=== PATIENT | male | born 1995 | race Hispanic/Latino ===

== ENCOUNTER 2024-03-04 18:58 | Emergency (ER) | payer OTHER ==
[2024-03-04] MEDS ORDERED: IBUPROFEN 100 MG/5 ML UCUP ONE (19:23)
[2024-03-04] MEDS ORDERED: KETOROLAC 30 MG/ML INJ ONE (19:55)
--- NOTE | 2024-03-04 21:01 | RAD REPORT ---
EXAM DESCRIPTION: RAD - Knee Right 3 View - 03/04/2024 7:55 pm CLINICAL HISTORY: PAIN COMPARISON: No comparisons TECHNIQUE: Right knee, 3 views. FINDINGS: No fracture, dislocation or periosteal reaction.No joint effusion seen. No joint space marta rowing. Soft tissue swelling anterior and medial to the patella. Clinical concerns for internal derangement or occult bony injury could be further assessed with MR im aging. IMPRESSION: Soft tissue swelling as above. No acute osseus abnormality.
--- NOTE | 2024-03-04 21:23 | EDPHYS ---
Physician Documentation [facility] Name: Benoit Barnard Age: 28 yrs Sex: Male : 1995 Arrival Date: 03/04/2024 Time: 18:58 Bed 12 Private MD: ED Physician Izaiah Max HPI: 03/04 19:30 This 28 yrs old Male presents to ER via Wheelchair with complaints of Knee cp Injury - Swelling. 19:30 The patient presents with pain, that is acute. The complaints affect the right knee. cp Context: resulted from an unknown cause, uses wheelchair. Onset: The symptoms/episode began/occurred yesterday. 19:30 Associated signs and symptoms: Pertinent positives: warmth, erythema, Pertinent cp negatives calf tenderness, fever. Treatment prior to arrival includes: no previous treatment. Historical: - Allergies: 19:14 No Known Allergies; cm10 - PMHx: 19:14 Cerebral Palsy; Non-verbal; Seizures; cm10 - PSHx: 19:14 Baclofen pump; G-tube; cm10 - Immunization history:: Adult Immunizations up to date. - Infectious Disease History:: Denies. - Social history:: Smoking status: Patient denies any tobacco usage or history of. ROS: 19:35 MS/extremity: Positive for decreased range of motion, erythema, pain, warmth, of the cp right knee, 19:35 Constitutional: Negative for fever, cp 19:35 Respiratory: Negative for cough, wheezing, 19:35 Abdomen/GI: Negative for vomiting, diarrhea, constipation, 19:35 All other systems are negative, Exam: 19:40 Constitutional: The patient appears in no acute distress, alert, awake, non-toxic, cp frail, 19:40 Head/Face: Normocephalic, atraumatic. cp 19:40 Chest/axilla: Inspection: normal, 19:40 Cardiovascular: Rate: tachycardic, 19:40 Respiratory: the patient does not display signs of respiratory distress, Respirations: normal, no use of accessory muscles, no retractions, labored breathing, is not present, 19:40 Abdomen/GI: Inspection: abdomen appears normal, Palpation: abdomen is soft and non-tender, in all quadrants, 19:40 Musculoskeletal/extremity: Extremities: noted in the right knee: anterior knee swelling, mild erythema, tenderness to palpation and pain with extension of knee, Vital Signs: 19:13 BP 136 / 89; Pulse 105; Resp 19; Temp 97.9(TE); Pulse Ox 88% on R/A; Weight 37.19 kg cm10 (R); Height 5 ft. 0 in. (R); 22:00 BP 111 / 67; Pulse 99; Resp 20; Temp 97.1(TE); Pulse Ox 96% on R/A; tl4 19:13 Body Mass Index 16.01 (37.19 kg, 152.4 cm) cm10 MDM: 19:16 Patient medically screened. cp 20:05 Differential diagnosis: closed fracture, contusion, septic joint, cellulitis, cp cellulitis. 21:21 Data reviewed: vital signs, nurses notes, radiologic studies, plain films. cp 21:21 I considered the following discharge prescriptions or medication management in the emergency department Medications were administered in the Emergency Department. See MAR. Counseling: I had a detailed discussion with the patient and/or guardian regarding the historical points, exam findings, and any diagnostic results supporting the discharge/admit diagnosis. Response to treatment: the patient's symptoms have markedly improved after treatment, and as a result, I will discharge patient. 03/04 19:21 Order name: XRAY Knee RIGHT 3 view; Complete Time: 21:06 03/04 21:06 Interpretation: Report reviewed. Administered Medications: 19:42 CANCELLED (Unable to give medication through J tube due to not having any extension tl4 sets available. Provider aware, mother aware, is OK with IM medication): ibuprofensuspension 10 mg/kg PO once 20:02 Drug: Ketorolac IM 15 mg IM once Route: IM; Site: right deltoid; tl4 20:39 Follow up: Response: No adverse reaction; Pain is decreased tl4 21:55 Drug: Rocephin (cefTRIAXone) IM 50 mg/kg IM once; not to exceed 2 grams Route: IM; tl4 Site: right vastus lateralis; 22:19 Follow up: Response: No adverse reaction tl4 21:57 Drug: Trimethoprim-Sulfamethoxazole PO (160 mg-800 mg (DS) 1 tablet PO once; crush and tl4 place in gastric tube Route: G-Tube; 22:18 Follow up: Response: No adverse reaction tl4 Disposition Summary: 03/04/24 21:22 Discharge Ordered Notes: Location: Home cp Problem: new cp Symptoms: have improved cp Condition: Stable cp Diagnosis - Cellulitis of right lower limb - right knee cp Followup: cp - With: Private Physician - When: 2 - 3 days - Reason: Recheck today's complaints Discharge Instructions: - Discharge Summary Sheet cp - Cellulitis, Adult cp Forms: - Medication Reconciliation Form cp - Antibiotic Education cp - Prescription Opioid Use cp - Patient Portal Instructions cp - Leadership Thank You Letter cp Prescriptions: - sulfamethoxazole-trimethoprim 200-40 mg/5 mL Oral Suspension - take 18 milliliters ORAL route every 12 hours for 10 days; 360 milliliter; cp Refills: 0, Product Selection Permitted Addendum: 03/06/2024 03:43 Co-signature as Attending Physician, Izaiah Max MD I agree with the assessment s p4 and plan of care. I reviewed the patient's care provided by the Advanced Practice Provider and agree with the diagnosis and treatment plan. Signatures: Dispatcher [employer] EDWI Adalid Patten PA PA cp Potepalov, Sergey, MD MD sp4 Rupa Stanley RN RN cm10 Ric Pedersen RN RN tl4 Corrections: (The following items were deleted from the chart) 03/04 19:42 19:21 Ibuprofen PO Suspension 10 mg/kg PO once ordered. cp tl4
--- NOTE | 2024-03-04 21:23 | ER ---
[facility]'s Notes [facility] Name: Benoit Barnard Age: 28 yrs Sex: Male : 1995 Arrival Date: 03/04/2024 Time: 18:58 Bed 12 Private MD: Diagnosis: Cellulitis of right lower limb-right knee Presentation: 03/04 19:13 Chief complaint: Parent and/or Guardian states: Right knee pain onset yesterday. Mom cm10 reports increased redness and swelling onset today. Coronavirus screen: Client denies travel out of the [place] in the last 14 days. At this time, the client does not indicate any symptoms associated with coronavirus-19. Ebola Screen: Patient denies travel to an Ebola-affected area in the 21 days before illness onset. No symptoms or risks identified at this time. Initial Sepsis Screen: Does the patient meet any 2 criteria? HR > 90 bpm. Does the patient have a suspected source of infection? No. Patient's initial sepsis screen is negative. Risk Assessment: Do you want to hurt yourself or someone else? Patient reports no desire to harm self or others. Onset of symptoms was March 04, 2024. 19:13 Method Of Arrival: Wheelchair cm10 19:13 Acuity: NANDO 4 cm10 Triage Assessment: 19:14 General: Appears in no apparent distress. comfortable, Behavior is calm. cm10 19:49 Injury Description: mother denies pt being injured. tl4 Historical: - Allergies: 19:14 No Known Allergies; cm10 - PMHx: 19:14 Cerebral Palsy; Non-verbal; Seizures; cm10 - PSHx: 19:14 Baclofen pump; G-tube; cm10 - Immunization history:: Adult Immunizations up to date. - Infectious Disease History:: Denies. - Social history:: Smoking status: Patient denies any tobacco usage or history of. Screenin:46 [facility] ED Fall Risk Assessment (Adult) History of falling in the last 3 months, tl4 including since admission No falls in past 3 months (0 pts) Confusion or Disorientation No (0 pts) Intoxicated or Sedated No (0 pts) Impaired Gait No (0 pts) Mobility Assist Device Used Yes (1 pt) Altered Elimination No (0 pt) Score/Fall Risk Level 0 - 2 = Low Risk Oriented to surroundings, Maintained a safe environment, Educated pt \T\ family on fall prevention, incl call for assistance when getting out of bed, Assessed \T\ reinforced patient's understanding of fall precautions. Abuse screen: Denies threats or abuse. Denies injuries from another. Nutritional screening: No deficits noted. Tuberculosis screening: No symptoms or risk factors identified. Assessment: 19:43 General: Appears in no apparent distress. Behavior is Pt has CPMR, pt is at his tl4 baseline per mother. Pain: Complains of pain in right knee. Neuro: Level of Consciousness is awake, alert, pt is at baseline LOC. Oriented to pt is at baseline orientation. Cardiovascular: Capillary refill < 3 seconds Patient's skin is warm and dry. Respiratory: Airway is patent Respiratory effort is even, unlabored, Respiratory pattern is regular, symmetrical, Breath sounds are clear bilaterally. GI: No signs and/or symptoms were reported involving the gastrointestinal system. : No signs and/or symptoms were reported regarding the genitourinary system. EENT: No signs and/or symptoms were reported regarding the EENT system. Derm: No signs and/or symptoms reported regarding the dermatologic system. Musculoskeletal: Swelling present in right knee right knee is warm to touch, pt indicates pain in right knee Parent/caregiver report the patient having pain in right knee. 20:39 Reassessment: Pt is resting comfortably in wheelchair. Mother denies any needs at this tl4 time. Will continue to monitor. 22:19 Reassessment: extended time to discharge due to IM medication administration. tl4 Vital Signs: 19:13 BP 136 / 89; Pulse 105; Resp 19; Temp 97.9(TE); Pulse Ox 88% on R/A; Weight 37.19 kg cm10 (R); Height 5 ft. 0 in. (R); 22:00 BP 111 / 67; Pulse 99; Resp 20; Temp 97.1(TE); Pulse Ox 96% on R/A; tl4 19:13 Body Mass Index 16.01 (37.19 kg, 152.4 cm) cm10 ED Course: 19:02 Patient arrived in ED. mg5 19:02 Adalid Patten PA is PHCP. cp 19:02 Roger Cavazos MD is Attending Physician. cp 19:14 Triage completed. cm10 19:14 Arm band placed on Patient placed in an exam room, on a stretcher. cm10 19:37 Ric Pedersen, RN is Primary Nurse. tl4 19:47 Patient has correct armband on for positive identification. Call light in reach. Adult tl4 w/ patient. Pt is secured in his personal wheelchair. Provided Education on: ed process, call herndon. Door closed. Noise minimized. Lights dimmed. Moved to private room. 19:48 No provider procedures requiring assistance completed. tl4 19:51 Patient did not have IV access during this emergency room visit. tl4 19:57 XRAY Knee RIGHT 3 view In Process Unspecified. EDMS 20:24 Izaiah Max MD is Attending Physician. cp Administered Medications: 19:42 CANCELLED (Unable to give medication through J tube due to not having any extension tl4 sets available. Provider aware, mother aware, is OK with IM medication): ibuprofensuspension 10 mg/kg PO once 20:02 Drug: Ketorolac IM 15 mg IM once Route: IM; Site: right deltoid; tl4 20:39 Follow up: Response: No adverse reaction; Pain is decreased tl4 21:55 Drug: Rocephin (cefTRIAXone) IM 50 mg/kg IM once; not to exceed 2 grams Route: IM; tl4 Site: right vastus lateralis; 22:19 Follow up: Response: No adverse reaction tl4 21:57 Drug: Trimethoprim-Sulfamethoxazole PO (160 mg-800 mg (DS) 1 tablet PO once; crush and tl4 place in gastric tube Route: G-Tube; 22:18 Follow up: Response: No adverse reaction tl4 Medication: 19:46 VIS not applicable for this client. tl4 Outcome: 21:22 Discharge ordered by . cp 22:05 Discharged to home via wheelchair, with family, tl4 22:05 Condition: stable 22:05 Discharge instructions given to family, Instructed on discharge instructions, follow up and referral plans. medication usage, Demonstrated understanding of instructions, follow-up care, medications, Prescriptions given X 1, 22:25 Patient left the ED. tl4 Signatures: Dispatcher [employer] EDMS Adalid Patten PA PA cp Martinez, Clarissa, VIVIAN RN cm10 Love Davidson mg5 Ric Pedersen, RN RN tl4
[2024-03-04] MEDS ORDERED: SMZ./TMP. 800/160 MG TABLET ONE (21:51)
[2024-03-04] MEDS ORDERED: CEFTRIAXONE 2000 MG/VIAL ONE (21:52)
[2024-03-04] MEDS ORDERED: LIDOCAINE 1% MPF 2 ML AMPULE ONE (21:52)
[2024-03-04] MEDS ORDERED: WATER FOR INJ,STERILE 10 ML ONE (21:52)
[2024-03-04 22:30] VITALS: BP 111/67; TEMP 97.1; O2SAT 96
== END 2024-03-04 22:25 | disposition home or self-care (01) ==
LOC: ER 18:58
DX: L03.115 Cellulitis of right lower limb (principal); G80.9 Cerebral palsy, unspecified
CPT/HCPCS: 73562; 96372; 99284; J0696

== ENCOUNTER 2024-06-21 14:19 | Emergency (ER) | payer OTHER ==
[2024-06-21] MEDS ORDERED: NA CHLORIDE 0.9% 1,000 ML ONE (15:21)
[2024-06-21 16:03] LABS: Absolute Eosinophils 0.3 K/uL (0-0.5); Absolute Lymphocytes (CBC) 0.7 K/uL (0.7-4.9); Absolute Monocytes 0.4 K/uL (0.1-1.3); Basophils % 0.6 % (0-1.3); Eosinophils % 8.6 % (0-4.4); Hematocrit 41.1 % (39.6-49.0); Hemoglobin 12.7 g/dL (13.6-17.9); Lymphocytes % 21.9 % (15.3-44.8); MCHC 30.9 g/dL (32.0-36.0); MCV 77.5 fL (80-100); Monocytes % 10.3 % (3.3-12.3); Neutrophils % 58.6 % (41.7-73.7); Nucleated Red Blood Cells % 0.4 % (0-0); Platelets 284 thou/uL (152-406); RBC Red Blood Cell Count 5.31 M/uL (4.33-5.43); Red Cell Distribution Width 19.6 % (12.1-15.2)
[2024-06-21 16:11] LABS: SARS-CoV-2 Antigen CONTROL BLUE LINE VIS/BG OK; SARS-CoV-2 Antigen Rapid Res Negative (Negative)
[2024-06-21 16:17] LABS: Anion Gap 6.1 mEq/L (5.0-15.0); Potassium 4.1 mEq/L (3.5-5.1)
--- NOTE | 2024-06-21 16:25 | RAD REPORT ---
Procedure: Chest Single View HISTORY: Seizure COMPARISON: 2022 FINDINGS: The lungs appear clear of acute infiltrate. No significant pleural effusion noted. The heart is normal size. IMPRESSION: No acute abnormality is displayed.
--- NOTE | 2024-06-21 17:41 | EDPHYS ---
Physician Documentation [facility] Name: Benoit Barnard Age: 28 yrs Sex: Male : 1995 Arrival Date: 06/21/2024 Time: 14:19 Bed 9 Private MD: ED Physician Freeman Dunlap HPI: 06/21 15:14 This 28 yrs old Male presents to ER via Wheelchair with complaints of Seizure. sb4 15:14 patient with history of cerebral palsy and epilepsy presents with multiple seizures sb4 over the past 24 hours. mom states that he typically only has seizures like this when he has some sort of infection. she denies any known fever, cough, aspiration episodes, vomiting, diarrhea. reports compliance with all medications. he is on zonisamide for his seizures, sees neurologist at [facility]. Historical: - Allergies: 15:04 No Known Allergies; hb - PMHx: 15:04 Cerebral Palsy; Non-verbal; Seizures; hb - PSHx: 15:04 Baclofen pump; G-tube; hb - Immunization history:: Adult Immunizations up to date. - Infectious Disease History:: Denies. - Social history:: Smoking status: Patient denies any tobacco usage or history of. ROS: 15:14 Unable to obtain ROS due to patient's inability to understand questions, , sb4 Exam: 15:14 Head/Face: Normocephalic, atraumatic. Eyes: Extra-ocular motions intact. Periorbital sb4 areas with no swelling, redness, or edema. ENT: Mucous membranes moist. Cardiovascular: Regular rate and rhythm with a normal S1 and S2. Respiratory: No increased work of breathing, no retractions or nasal flaring. Abdomen/GI: Soft, non-tender, no distension. 15:14 Constitutional: The patient appears in no acute distress, alert, awake, Vital Signs: 15:02 BP 120 / 82; Pulse 92; Resp 14; Temp 98.3; Pulse Ox 98% ; Weight 36.29 kg; hb 16:01 BP 127 / 79; Pulse 69; Resp 17; Pulse Ox 99% ; rs5 17:55 BP 119 / 74; Pulse 74; Resp 17; Pulse Ox 99% on R/A; rs5 MDM: 15:08 Medical Screening Exam initiated sb4 17:45 ED course: No seizures during ED stay. Patient is in no acute distress. Workup is sb4 unremarkable. I did recommend checking urine for infection but would require straight cath. Mom prefers to not at this time. Will bring patient back if seizures worsen or return. 17:45 Data reviewed: vital signs, nurses notes, lab test result(s), radiologic studies, and sb4 as a result, I will discharge patient. Care significantly affected by the following chronic conditions: Cerebral palsy, epilepsy. Counseling: I had a detailed discussion with the patient and/or guardian regarding the historical points, exam findings, and any diagnostic results supporting the discharge/admit diagnosis, lab results, radiology results, to return to the emergency department if symptoms worsen or persist or if there are any questions or concerns that arise at home. 06/21 15:13 Order name: CBC with Diff; Complete Time: 16:11 sb4 06/21 15:13 Order name: BMP; Complete Time: 16:18 sb4 06/21 15:13 Order name: SARS RAPID; Complete Time: 16:12 sb4 06/21 15:13 Order name: Flu; Complete Time: 16:12 sb4 06/21 15:13 Order name: RSV; Complete Time: 16:23 sb4 06/21 15:13 Order name: Chest Single View XRAY; Complete Time: 16:26 sb4 06/21 15:13 Order name: IV Start; Complete Time: 15:58 sb4 06/21 15:45 Order name: Labs - recollect needed: RSV; Complete Time: 15:58 bc6 06/21 16:10 Order name: EKG - Nurse/Tech; Complete Time: 16:10 sb4 EC:10 Rate is 83 beats/min. Rhythm is regular, Normal Sinus Rhythm. ND interval is normal at sb4 124 msec. QRS interval is normal at 84 msec. QT interval is normal at 362 msec. No Q waves. T waves are Normal. No ST changes noted. Clinical impression: No evidence of ischemia. Interpreted by me. Reviewed by me. Administered Medications: 15:30 Drug: NS 0.9% IV 1000 ml IV at 1000 ml once; to be given as a bolus over 60 minutes rs5 Route: IV; Rate: 1000 ml; Site: left antecubital; 16:41 Follow up: Response: No adverse reaction; IV Status: Completed infusion; IV Intake: rs5 999ml Disposition: 17:46 Chart complete. sb4 Disposition Summary: 06/21/24 17:40 Discharge Ordered Notes: Location: Home sb4 Problem: new sb4 Symptoms: have improved sb4 Condition: Stable sb4 Diagnosis - Other seizures sb4 Followup: sb4 - With: Emergency Department - When: As needed - Reason: Trouble breathing, Worsening of condition Discharge Instructions: - Discharge Summary Sheet sb4 - Epilepsy, [id number] sb4 Forms: - Patient Portal Instructions sb4 - Leadership Thank You Letter sb4 Signatures: Dispatcher [employer] EDMS Claudette Tong, RN RN Lisa Bettencourt PA-C PA-C sb4 Prudencio Clemons RN RN rs5 Naya Pickett6 Corrections: (The following items were deleted from the chart) 15:14 15:14 CBC+H.LAB.BRZ ordered. EDMS EDMS 15:14 15:14 BASIC METABOLIC PANEL+C.LAB.BRZ ordered. EDMS EDMS 15:14 15:14 Urinalysis W/Microscopic+U.LAB.BRZ ordered. EDMS EDMS 15:14 15:14 SARS-COV-2 Antigen Rapid+I.LAB.BRZ ordered. EDMS EDMS 15:14 15:14 Influenza Screen (A \T\ B)+BA.LAB.BRZ ordered. EDMS EDMS 15:14 15:14 Respiratory Syncytial Virus Ag+BA.LAB.BRZ ordered. EDMS EDMS 15:14 15:14 Chest Single View+RAD.RAD.BRZ ordered. EDMS EDMS
--- NOTE | 2024-06-21 17:41 | ER ---
Nurse's Notes [facility] Name: Benoit Barnard Age: 28 yrs Sex: Male : 1995 Arrival Date: 06/21/2024 Time: 14:19 Bed 9 Private MD: Diagnosis: Other seizures Presentation: 06/21 15:02 Chief complaint: Mother reports seizure x 5 today. Coronavirus screen: At this time, hb the client does not indicate any symptoms associated with coronavirus-19. Ebola Screen: No symptoms or risks identified at this time. Initial Sepsis Screen: Does the patient meet any 2 criteria? HR > 90 bpm. No. Patient's initial sepsis screen is negative. Does the patient have a suspected source of infection? No. Patient's initial sepsis screen is negative. Risk Assessment: Do you want to hurt yourself or someone else? Patient reports no desire to harm self or others. Onset of symptoms was June 21, 2024. 15:02 Method Of Arrival: Wheelchair hb 15:02 Acuity: NANDO 3 hb Historical: - Allergies: 15:04 No Known Allergies; hb - PMHx: 15:04 Cerebral Palsy; Non-verbal; Seizures; hb - PSHx: 15:04 Baclofen pump; G-tube; hb - Immunization history:: Adult Immunizations up to date. - Infectious Disease History:: Denies. - Social history:: Smoking status: Patient denies any tobacco usage or history of. Screenin:05 [facility] ED Fall Risk Assessment (Adult) History of falling in the last 3 months, rs5 including since admission No falls in past 3 months (0 pts) Confusion or Disorientation No (0 pts) Intoxicated or Sedated No (0 pts) Impaired Gait No (0 pts) Mobility Assist Device Used Altered Elimination No (0 pt) Score/Fall Risk Level 0 - 2 = Low Risk Oriented to surroundings, Maintained a safe environment. 15:05 Abuse screen: Denies threats or abuse. Nutritional screening: No deficits noted. rs5 Tuberculosis screening: No symptoms or risk factors identified. Assessment: 15:10 General: Appears in no apparent distress. comfortable, Behavior is calm, cooperative. rs5 Pain: Unable to use pain scale. pt is non-verbal. Neuro: Level of Consciousness is awake, alert, Oriented to unable to assess, pt is non-verba. Cardiovascular: Patient's skin is warm and dry. Respiratory: Airway is patent Respiratory effort is even, unlabored, Respiratory pattern is regular, symmetrical. GI: Abdomen is round non-distended, feeding tube noted to abdomen Abd is soft and non tender X 4 quads. : No signs and/or symptoms were reported regarding the genitourinary system. EENT: No signs and/or symptoms were reported regarding the EENT system. Derm: Skin is intact, Skin is pink, warm \T\ dry. Musculoskeletal: Range of motion: limited in all extremities. 16:22 Reassessment: Patient and/or family updated on plan of care and expected duration. Pain rs5 level reassessed. Patient is alert, oriented x 3, equal unlabored respirations, skin warm/dry/pink. 17:39 Reassessment: Patient and/or family updated on plan of care and expected duration. Pain rs5 level reassessed. Patient is alert, oriented x 3, equal unlabored respirations, skin warm/dry/pink. Vital Signs: 15:02 BP 120 / 82; Pulse 92; Resp 14; Temp 98.3; Pulse Ox 98% ; Weight 36.29 kg; hb 16:01 BP 127 / 79; Pulse 69; Resp 17; Pulse Ox 99% ; rs5 17:55 BP 119 / 74; Pulse 74; Resp 17; Pulse Ox 99% on R/A; rs5 ED Course: 14:22 Patient arrived in ED. mr 14:33 [facility] Pearson [facility] sb4 14:33 Freeman Dunlap MD is Attending Physician. sb4 15:04 Triage completed. hb 15:05 Arm band placed on. hb 15:06 Patient has correct armband on for positive identification. Placed in gown. Bed in low rs5 position. Call light in reach. Side rails up X2. Adult w/ patient. 15:07 Prudencio Clemons, RN is Primary Nurse. rs5 15:09 Seizure precautions initiated. rs5 15:20 Inserted saline lock: 22 gauge in left antecubital area, using aseptic technique. Blood rs5 collected. Flushed with 10 mL NS. 16:12 Chest Single View XRAY In Process Unspecified. EDMS 17:56 Provided Education on: discharge instructions . rs5 17:56 No provider procedures requiring assistance completed. IV discontinued, intact, rs5 bleeding controlled, No redness/swelling at site. Pressure dressing applied. Administered Medications: 15:30 Drug: NS 0.9% IV 1000 ml IV at 1000 ml once; to be given as a bolus over 60 minutes rs5 Route: IV; Rate: 1000 ml; Site: left antecubital; 16:41 Follow up: Response: No adverse reaction; IV Status: Completed infusion; IV Intake: rs5 999ml Medication: 17:56 VIS not applicable for this client. rs5 Intake: 16:41 IV: 999ml; Total: 999ml. rs5 Outcome: 17:40 Discharge ordered by . lebron 17:56 Discharged to home via wheelchair, with family, rs5 17:56 Condition: stable 17:56 Discharge instructions given to patient, family, Instructed on discharge instructions, follow up and referral plans. Demonstrated understanding of instructions, follow-up care, 17:57 Patient left the ED. rs5 Signatures: Dispatcher [employer] EDCA Ofelia Kapoor, Reg Reg mr Claudette Tong, RN RN Lisa Bettencourt PASteve PASteve sb4 Prudencio Clemons RN RN rs5
[2024-06-21 18:18] VITALS: TEMP 98.3
[2024-06-21 18:19] VITALS: O2SAT 99
[2024-06-21 18:21] VITALS: BP 119/74
--- NOTE | 2024-06-25 13:47 | EKG ---
Test Date: 2024-06-21 Test Time: 15:45:04 Zinc Plate Cutter: RICHY MEASUREMENT RESULTS: Intervals: Rate: 83 FL: 124 QRSD: 84 QT: 362 QTc: 425 [place]: P: 63 FL: 124 QRS: 63 T: 69 INTERPRETIVE STATEMENTS: Normal sinus rhythm with sinus arrhythmia Normal ECG Compared to ECG 10/12/2022 17:02:11 No significant changes Electronically Signed On 06-25-24 13:38:55 [employer] by Shalom Willis
== END 2024-06-21 17:57 | disposition home or self-care (01) ==
LOC: ER 14:19
DX: G40.89 Other seizures (principal); G80.9 Cerebral palsy, unspecified; Z11.52 Encounter for screening for COVID-19
CPT/HCPCS: 93005; 85025; 80048; 36415; 87807; 87804 ×2; 71045; 96360; 99284; 87811; J7030

== ENCOUNTER 2024-07-31 15:26 | Inpatient (IN) | payer OTHER ==
[2024-07-31 16:14] LABS: Absolute Eosinophils 0.1 K/uL (0-0.5); Absolute Lymphocytes (CBC) 0.4 K/uL (0.7-4.9); Absolute Monocytes 0.6 K/uL (0.1-1.3); Absolute Neutrophil 20.4 K/uL (1.8-8.0); Basophils % 0.1 % (0-1.3); Eosinophils % 0.3 % (0-4.4); Hematocrit 41.4 % (39.6-49.0); Hemoglobin 13.1 g/dL (13.6-17.9); MCH 24.5 pg (27.0-35.0); MCHC 31.7 g/dL (32.0-36.0); MPV 8.5 fL (7.6-11.3); Monocytes % 2.7 % (3.3-12.3); Neutrophils % 94.9 % (41.7-73.7); Nucleated Red Blood Cells % 0.1 % (0-0); Platelets 203 thou/uL (152-406); RBC Red Blood Cell Count 5.37 M/uL (4.33-5.43); Red Cell Distribution Width 19.8 % (12.1-15.2)
[2024-07-31 16:25] LABS: PT Prothrombin Time 12.1 SECONDS (9.4-12.5); PTT, Activated Partial Thromb 31.9 SECONDS (24.3-36.9); Protime INR 1.15
[2024-07-31 16:32] LABS: Albumin 2.8 g/dL (3.4-5.0); Albumin/Globulin Ratio 0.5 (1.1-1.8); Anion Gap 6.9 mEq/L (5.0-15.0); Bilirubin Total 0.4 mg/dL (0.2-1.0); Potassium 3.9 mEq/L (3.5-5.1); Protein, Total 8.8 g/dL (6.4-8.2)
[2024-07-31 16:38] LABS: Blood Morphology Comment NOT SEEN (NOT SEEN); Platelet Estimate ADEQ; White Blood Cell Scan OK (OK)
[2024-07-31 16:43] LABS: SARS-CoV-2 Antigen CONTROL BLUE LINE VIS/BG OK; SARS-CoV-2 Antigen Rapid Res Negative (Negative)
[2024-07-31] MEDS ORDERED: CEFTRIAXONE 1000 MG/VIAL ONE (17:03)
[2024-07-31] MEDS ORDERED: NA CHLORIDE 0.9% 1,000 ML ONE (17:03)
[2024-07-31] MEDS ORDERED: AZITHROMYCIN 500 MG INJ IVPB ONE (17:03)
--- NOTE | 2024-07-31 17:37 | ER ---
Nurse's Notes [facility] Name: Benoit Barnard Age: 28 yrs Sex: Male : 1995 Arrival Date: 07/31/2024 Time: 15:26 Bed 4 Private MD: Diagnosis: Pneumonia, unspecified organism Presentation: 07/31 15:40 Chief complaint: Parent and/or Guardian states: reports that the patient has had ap3 increased coughing, and that she has been hearing a "rattle" in his chest since he woke up this morning. Coronavirus screen: At this time, the client does not indicate any symptoms associated with coronavirus-19. Ebola Screen: No symptoms or risks identified at this time. Initial Sepsis Screen: Does the patient meet any 2 criteria? No. Patient's initial sepsis screen is negative. Does the patient have a suspected source of infection? No. Patient's initial sepsis screen is negative. Risk Assessment: Do you want to hurt yourself or someone else? Patient reports no desire to harm self or others. Onset of symptoms was July 31, 2024. 15:40 Method Of Arrival: Wheelchair ap3 15:40 Acuity: NANDO 3 ap3 Triage Assessment: 15:42 General: Appears comfortable, Behavior is calm. Pain: Unable to use pain scale. patient ap3 is nonverbal. Neuro: Level of Consciousness is awake, alert. Cardiovascular: Patient's skin is warm and dry. Respiratory: Airway is patent Respiratory effort is even, unlabored, Parent/caregiver reports the patient having cough that is. Historical: - Allergies: 15:41 No Known Allergies; ap3 - PMHx: 15:41 Cerebral Palsy; Non-verbal; Seizures; ap3 - PSHx: 15:41 Baclofen pump; G-tube; ap3 - Immunization history:: Flu vaccine is not up to date. - Infectious Disease History:: Denies. - Social history:: Smoking status: Patient denies any tobacco usage or history of. - Family history:: not pertinent. - Hospitalizations: : No recent hospitalization is reported. Screenin:42 Abuse screen: Denies threats or abuse. Nutritional screening: No deficits noted. ap3 Tuberculosis screening: No symptoms or risk factors identified. 20:12 [facility] ED Fall Risk Assessment (Adult) History of falling in the last 3 months, bm8 including since admission No falls in past 3 months (0 pts) Confusion or Disorientation Yes (5 pts) Intoxicated or Sedated No (0 pts) Impaired Gait Yes (1 pt) Mobility Assist Device Used Yes (1 pt) Altered Elimination Yes (1 pt). 20:15 [facility] ED Fall Risk Assessment (Adult) Score/Fall Risk Level 3 or more points = High bm8 Risk Oriented to surroundings, Maintained a safe environment, Educated pt \\T\\ family on fall prevention, incl call for assistance when getting out of bed, Assessed \\T\\ reinforced patient's understanding of fall precautions, Hourly rounding (assess needs \\T\\ fall precautionary measures) done, Used ambulatory aids as needed (educated on \\T\\ assisted with), Used gait belt as appropriate Implemented a Fall Risk Plan of Care. Assessment: 15:45 General: Appears AT BASELINE. Cardiovascular: Rhythm is sinus rhythm. Respiratory: bp Airway is patent Breath sounds are coarse bilaterally. 20:12 Reassessment: Patient appears in no apparent distress at this time. Patient and/or bm8 family updated on plan of care and expected duration. Pain level reassessed. Patient is alert, oriented x 3, equal unlabored respirations, skin warm/dry/pink. General: Appears in no apparent distress. comfortable, well groomed, Behavior is calm, cooperative, appropriate for age. Pain: Denies pain. Neuro: Level of Consciousness is obeys commands, Oriented to person. Cardiovascular: Capillary refill < 3 seconds in bilateral fingers Patient's skin is warm and dry. Rhythm is sinus rhythm. Respiratory: Airway is patent Breath sounds are coarse bilaterally. Vital Signs: 15:40 BP 116 / 87; Pulse 89; Resp 18; Temp 98.3(TE); Pulse Ox 94% on R/A; Weight 38.1 kg; ap3 20:12 BP 111 / 77; Pulse 85; Resp 20; Temp 97.6; Pulse Ox 92% on R/A; Pain 0/10; bm8 20:12 Pain Scale: Adult bm8 Noah Coma Score: 20:12 Eye Response: spontaneous(4). Motor Response: obeys commands(6). Verbal Response: bm8 oriented(5). Total: 15. ED Course: 15:27 Patient arrived in ED. ra3 15:32 Igor Aleman MD is Attending Physician. rn 15:41 Maria L, Edvan, RN is Primary Nurse. bp 15:41 Triage completed. ap3 15:45 Arm band placed on. bp 16:00 Inserted saline lock: 20 gauge in right forearm, using aseptic technique. Blood bp collected. Flushed with 10 mL NS. 16:15 Initial lab(s) drawn, by me, sent to lab. First set of blood cultures drawn by me, bp Second set of blood cultures drawn by me, EKG done, by ED staff, reviewed by Igor Aleman MD. 17:02 Chest Single View XRAY In Process Unspecified. EDMS 17:37 Prince Goel MD is Hospitalizing Provider. rn 20:12 Patient has correct armband on for positive identification. Call light in reach. Adult bm8 w/ patient. Client placed on continuous cardiac and pulse oximetry monitoring. NIBP monitoring applied. Pulse ox on. NIBP on. Door closed. Noise minimized. Verbal reassurance given. 20:12 No provider procedures requiring assistance completed. Patient admitted, IV remains in bm8 place. 20:15 Provided Education on: need for admission. bm8 Administered Medications: 17:00 Drug: Zithromax IVPB 500 mg IVPB once over 1 hrs; mix in 250 mL NS Route: IVPB; Infused bp Over: 1 hrs; Site: right forearm; 20:17 Follow up: Response: No adverse reaction; IV Status: Completed infusion; IV Intake: bm8 250ml 17:00 Drug: NS 0.9% IV 1000 ml IV at 1000 ml once; to be given as a bolus over 60 minutes bp Route: IV; Rate: 1000 ml; Site: right forearm; 20:17 Follow up: Response: No adverse reaction; IV Status: Completed infusion; IV Intake: bm8 1000ml 17:18 Drug: Rocephin IV 1 grams IV at calculated rate once; Given slow IV push per pharmacy bp instructions Route: IV; Rate: calculated rate; Site: right forearm; 20:18 Follow up: Response: No adverse reaction; IV Status: Completed infusion; IV Intake: [id number] Medication: 20:12 VIS not applicable for this client. bm8 Intake: 20:17 IV: 1000ml; Total: 1000ml. bm8 20:17 IV: 250ml; Total: 1250ml. bm8 20:18 IV: 50ml; Total: 1300ml. bm8 Outcome: 17:37 Decision to Hospitalize by Provider. rn 20:16 Admitted to Med/surg accompanied by tech, family with patient, via wheelchair, room bm8 207, with chart, 20:16 Condition: stable 20:16 Instructed on follow up and referral plans. the need for admit, Demonstrated understanding of follow-up care, medications, 21:02 Patient left the ED. bm8 Signatures: Dispatcher [employer] EDMS Igor Aleman MD MD rn Peltier, Brian, RN RN Sariah Mendoza RN RN ap3 Alva, Ruby ra3 McDonald, Brad, RN RN bm8
--- NOTE | 2024-07-31 17:37 | EDPHYS ---
Physician Documentation [facility] Name: Benoit Barnard Age: 28 yrs Sex: Male : 1995 Arrival Date: 07/31/2024 Time: 15:26 Bed 4 Private MD: ED Physician Igor Aleman HPI: 07/31 17:33 This 28 yrs old Male presents to ER via Wheelchair with complaints of rn Breathing Difficulty - Not feeling well. 17:33 The patient has shortness of breath at rest, with light activity. rn 17:34 Onset: The symptoms/episode began/occurred yesterday. Duration: The symptoms are rn intermittent. The patient's shortness of breath is aggravated by coughing. Severity of symptoms: At their worst the symptoms were moderate in the emergency department the symptoms are unchanged. The patient has experienced similar episodes in the past. Patient with a history of cerebral palsy, recurrent pneumonia and aspiration, mother reports cough and not feeling well since yesterday. No trauma. No hemoptysis.. Historical: - Allergies: 15:41 No Known Allergies; ap3 - PMHx: 15:41 Cerebral Palsy; Non-verbal; Seizures; ap3 - PSHx: 15:41 Baclofen pump; G-tube; ap3 - Immunization history:: Flu vaccine is not up to date. - Infectious Disease History:: Denies. - Social history:: Smoking status: Patient denies any tobacco usage or history of. - Family history:: not pertinent. - Hospitalizations: : No recent hospitalization is reported. ROS: 17:34 Constitutional: Positive for fever Respiratory: Positive for cough Abdomen/GI: Negative rn for abdominal pain, nausea, vomiting, diarrhea, and constipation, Exam: 17:34 Constitutional: This is a well developed, well nourished patient who is awake, alert, rn frequent coughing Cardiovascular: Regular rate and rhythm. No pulse deficits. Respiratory: Mild tachypnea with coarse bilateral breath sounds 19:13 ECG was reviewed by the Attending Physician. rn Vital Signs: 15:40 BP 116 / 87; Pulse 89; Resp 18; Temp 98.3(TE); Pulse Ox 94% on R/A; Weight 38.1 kg; ap3 20:12 BP 111 / 77; Pulse 85; Resp 20; Temp 97.6; Pulse Ox 92% on R/A; Pain 0/10; bm8 20:12 Pain Scale: Adult bm8 Noah Coma Score: 20:12 Eye Response: spontaneous(4). Motor Response: obeys commands(6). Verbal Response: bm8 oriented(5). Total: 15. MDM: 15:32 Medical Screening Exam initiated rn 17:34 Differential diagnosis: pneumonia, Pneumothorax pulmonary edema. Data reviewed: vital rn signs, nurses notes, lab test result(s), radiologic studies, plain films, and as a result, I will admit patient. Consideration of Admission/Observation Patient was admitted/placed on observation. Escalation of care including admission/observation considered. Counseling: I had a detailed discussion with the patient and/or guardian regarding the historical points, exam findings, and any diagnostic results supporting the discharge/admit diagnosis, lab results, radiology results, the need for further work-up and treatment in the hospital. 07/31 15:39 Order name: Blood Culture Adult (2) rn 07/31 15:39 Order name: CBC with Diff; Complete Time: 16:41 07/31 15:39 Order name: CMP; Complete Time: 16:41 07/31 15:39 Order name: Lactate w/ 2H reflex if indic.; Complete Time: 16:41 07/31 15:39 Order name: Protime (+inr); Complete Time: 16:41 07/31 15:39 Order name: Ptt, Activated; Complete Time: 16:41 07/31 15:39 Order name: SARS-COV-2 Antigen Rapid; Complete Time: 19:12 07/31 15:39 Order name: Flu; Complete Time: 19:12 07/31 16:20 Order name: CBC Smear Scan; Complete Time: 16:41 [facility] 07/31 16:37 Order name: Ghost Lactate-NO COLLECT Timer; Complete Time: 19:12 EDUT 07/31 18:36 Order name: Lactate w/ 2H reflex if indic. EDUT 07/31 18:36 Order name: ABG Arterial Blood Gas EDUT 07/31 18:37 Order name: Magnesium EDUT 07/31 18:37 Order name: NT PRO-BNP EDUT 07/31 18:37 Order name: Phosphorus EDMS 07/31 18:37 Order name: Basic Metabolic Panel EDUT 07/31 18:37 Order name: Basic Metabolic Panel EDUT 07/31 18:37 Order name: CBC with Automated Diff EDMS 07/31 18:37 Order name: CBC with Automated Diff EDMS 07/31 18:37 Order name: Lipid Profile EDUT 07/31 18:37 Order name: Lipid Profile EDUT 07/31 19:28 Order name: Lactate Sepsis 2 HR Follow-up EDMS 07/31 15:39 Order name: Chest Single View XRAY; Complete Time: 19:12 rn 07/31 15:39 Order name: EKG; Complete Time: 15:39 rn 07/31 15:39 Order name: Accucheck; Complete Time: 16:23 rn 07/31 15:39 Order name: Cardiac monitoring; Complete Time: 16:23 rn 07/31 15:39 Order name: EKG - Nurse/Tech; Complete Time: 16:23 rn 07/31 15:39 Order name: IV Saline Lock - Large Bore; Complete Time: 16:23 rn 07/31 15:39 Order name: Labs collected and sent; Complete Time: 16:23 rn 07/31 15:39 Order name: O2 Per Protocol; Complete Time: 16:23 rn 07/31 15:39 Order name: O2 Sat Monitoring; Complete Time: 16:23 rn 07/31 15:39 Order name: Vital Signs; Complete Time: 16:23 rn EC:13 Rate is 95 beats/min. Rhythm is regular. QRS [place] is Normal. SD interval is normal. QRS rn interval is normal. QT interval is normal. No Q waves. T waves are Normal. No ST changes noted. Clinical impression: Normal ECG. Interpreted by me. Reviewed by me. Administered Medications: 17:00 Drug: Zithromax IVPB 500 mg IVPB once over 1 hrs; mix in 250 mL NS Route: IVPB; Infused bp Over: 1 hrs; Site: right forearm; 20:17 Follow up: Response: No adverse reaction; IV Status: Completed infusion; IV Intake: bm8 250ml 17:00 Drug: NS 0.9% IV 1000 ml IV at 1000 ml once; to be given as a bolus over 60 minutes bp Route: IV; Rate: 1000 ml; Site: right forearm; 20:17 Follow up: Response: No adverse reaction; IV Status: Completed infusion; IV Intake: bm8 1000ml 17:18 Drug: Rocephin IV 1 grams IV at calculated rate once; Given slow IV push per pharmacy bp instructions Route: IV; Rate: calculated rate; Site: right forearm; 20:18 Follow up: Response: No adverse reaction; IV Status: Completed infusion; IV Intake: [id number] Disposition Summary: 07/31/24 17:37 Hospitalization Ordered Notes: Hospitalization Status: Inpatient Admission rn Provider: Prince olya Goel Location: Telemetry/MedSurg (Inpatient) rn Condition: Stable rn Problem: new rn Symptoms: have improved rn Bed/Room Type: Standard rn Room Assignment: 207(07/31/24 20:08) sp Diagnosis - Pneumonia, unspecified organism rn Forms: - Medication Reconciliation Form rn - SBAR form rn - Leadership Thank You Letter rn Signatures: Dispatcher [employer] EDMS Mirella Andujar Roman, MD MD rn Peltier, Devan, RN RN Sariah Mendoza RN RN ap3 Ed Roth RN bm8 Corrections: (The following items were deleted from the chart) 15:40 15:39 BLOOD CULTURE*+BA.LAB.BRZ ordered. EDMS EDMS 15:40 15:39 CBC+H.LAB.BRZ ordered. EDMS EDMS 15:40 15:39 COMPREHENSIVE METABOLIC PANEL+C.LAB.BRZ ordered. EDMS EDMS 15:40 15:39 LACTATE+C.LAB.BRZ ordered. EDMS EDMS 15:40 15:39 PROTIME (+INR)+COAG.LAB.BRZ ordered. EDMS EDMS 15:40 15:39 PTT, ACTIVATED+COAG.LAB.BRZ ordered. EDMS EDMS 20:08 17:37 rn sp
[2024-07-31] MEDS ORDERED: IPRATROPIUM BROM 0.5MG/2.5ML NEB PRN (18:32)
[2024-07-31] MEDS ORDERED: ONDANSETRON 4 MG/2 ML VIAL IV PRN (18:32)
[2024-07-31] MEDS ORDERED: ACETAMINOPHEN 500 MG TAB PO PRN (18:32)
[2024-07-31] MEDS ORDERED: ALBUTEROL 2.5 MG/3 ML NEB SOL NEB PRN (18:32)
--- NOTE | 2024-07-31 18:39 | P.HP ---
Certification for Inpatient Patient admitted to: Inpatient With expected LOS: >2 Midnights Practitioner: I am a practitioner with admitting privileges, knowledge of patient current condition, hospital course, and medical plan of care. Services: Services provided to patient in accordance with Admission requirements found in Title 42 Section 412.3 of the Code of Federal Regulations Patient History Date of Service: 07/31/24 Reason for admission: Shortness of breath History of Present Illness: Patient is a 28-year-old male with a past medical history of cerebral palsy and seizure. He is being admitted for community-acquired pneumonia. He presented with difficulty breathing and malaise. Symptoms been ongoing for the past 24 hours. Associated symptoms include coughing and fever. He was 94% on room air in the ER but his O2 sats will occasionally drop in the mid 80s. Allergies No Known Allergies Allergy (Unverified 05/04/15 19:32) Physical Examination - Physical Exam General: Other (Frail and cachectic, slightly somnolent) HEENT: Other (Temporal muscle wasting) Respiratory: Normal air movement Cardiovascular: No edema, Normal pulses, Regular rate/rhythm, Normal S1 S2 - Studies Laboratory Data (last 24 hrs) 07/31/24 07/31/24 07/31/24 15:59 15:59 15:59 WBC 21.50 H Hgb 13.1 L Hct 41.4 Plt Count 203 PT 12.1 INR 1.15 APTT 31.9 Sodium 138 Potassium 3.9 BUN 21 H Creatinine 0.64 L Glucose 136 H Total Bilirubin 0.4 AST 45 H ALT 79 H Alkaline Phosphatase 89 Microbiology Data (last 24 hrs): 07/31/24 16:03 Nasopharnyx Influenza Type A Antigen Screen - Final 07/31/24 16:03 Nasopharnyx Influenza Type B Antigen Screen - Final Assessment and Plan - Problems (Diagnosis) (1) Community acquired pneumonia Current Visit: Yes Status: Acute (2) Sepsis Current Visit: Yes Status: Acute (3) Seizure disorder Current Visit: Yes Status: Acute (4) Cerebral palsy Current Visit: Yes Status: Acute - Plan Assessment Patient is a 28-year-old male with a past medical history of cerebral palsy and seizure disorder. He is being admitted for community-acquired pneumonia after he presented with fever, cough and shortness of breath. He is getting occasionally hypoxic in the ER with O2 sats dropping in the 80s. Chest x-ray with evidence of multifocal pneumonia. Sepsis Community-acquired pneumonia Cerebral palsy Seizure disorder Severe malnutrition Plan: Will admit inpatient with telemetry Start patient on meropenem for multifocal pneumonia. Vanco will also be added Follow blood and respiratory cultures CT chest Antiemetics and antipyretic DVT prophylaxis with Lovenox Patient is full code - Advance Directives Does patient have a Living Will: No Does patient have a Durable POA for Healthcare: No
--- NOTE | 2024-07-31 18:54 | RAD REPORT ---
EXAMINATION: ONE VIEW CHEST XR CLINICAL INDICATION: Male, 28 years old.,Cough;Dyspnea TECHNIQUE: Frontal chest projection is submitted. Examination is limited by patient positioning and t echnique. COMPARISON: 06/21/2024 FINDINGS: Progressive airspace opacities including confluent left mid to lower lung opacities and scattered pat umm right upper to midlung opacities. No pneumothorax or sizable effusion. The heart is normal in size. Mediastinal contours are unremarkable. IMPRESSION: Progressive bilateral airspace opacities as above, concerning for pneumonitis.
[2024-07-31] MEDS ORDERED: VANCOMYCIN 1.25 GM in NA CHLORIDE 0.9% 250 ML IVPB SCH (21:00)
[2024-07-31] MEDS: NA CHLORIDE 0.9% 1,000 ML IV SCH (22:01)
[2024-07-31] MEDS: VANCOMYCIN 1 GM in NA CHLORIDE 0.9% 250 ML IVPB ONE (22:02)
[2024-07-31] MEDS: Meropenem 1,000 MG in NA CHLORIDE 0.9% 100 ML IV SCH (22:02)
[2024-07-31 23:52] LABS: Magnesium 1.8 mg/dL (1.6-2.4); Phosphorus 3.3 mg/dL (2.5-4.9)
[2024-08-01 06:28] LABS: Absolute Eosinophils 0.4 K/uL (0-0.5); Absolute Lymphocytes (CBC) 1.3 K/uL (0.7-4.9); Absolute Monocytes 0.5 K/uL (0.1-1.3); Absolute Neutrophil 14.2 K/uL (1.8-8.0); Basophils % 0.1 % (0-1.3); Eosinophils % 2.4 % (0-4.4); Hematocrit 34.1 % (39.6-49.0); Hemoglobin 10.7 g/dL (13.6-17.9); Lymphocytes % 7.7 % (15.3-44.8); MCH 24.6 pg (27.0-35.0); MCHC 31.4 g/dL (32.0-36.0); MCV 78.3 fL (80-100); MPV 8.2 fL (7.6-11.3); Monocytes % 3.3 % (3.3-12.3); Neutrophils % 86.5 % (41.7-73.7); Nucleated Red Blood Cells % 0.1 % (0-0); Platelets 200 thou/uL (152-406); RBC Red Blood Cell Count 4.35 M/uL (4.33-5.43); Red Cell Distribution Width 19.5 % (12.1-15.2)
[2024-08-01 06:44] LABS: Anion Gap 4.2 mEq/L (5.0-15.0); Potassium 4.2 mEq/L (3.5-5.1)
[2024-08-01] MEDS ORDERED: ALBUTEROL 2.5 MG/3 ML NEB SOL NEB PRN (08:14)
[2024-08-01] MEDS: ENOXAPARIN 40 MG/0.4 ML SQ SCH (08:56)
[2024-08-01] MEDS: VANCOMYCIN 750 MG in NA CHLORIDE 0.9% 150 ML IVPB SCH (09:42)
[2024-08-01] MEDS ORDERED: DIAZEPAM 5 MG TABLET FT PRN (15:10)
--- NOTE | 2024-08-01 15:11 | P.PN ---
Subjective Date of Service: 08/01/24 Chief Complaint: Bilateral pneumonia Patient is 28 years of age with a history of cerebral palsy mother present at the bedside and he was admitted with acute onset of cough and shortness of breath recent history of use of antibiotics and is disabled from his cerebral palsy Review of Systems is unable to be obtained Physical Examination - Vital Signs Temperature: 96.5 F Blood Pressure: 121/60 Pulse: 86 Respirations: 18 Pulse Ox (%): 92 - Physical Exam General: Alert, Unresponsive Respiratory: Clear to auscultation bilaterally, Crackles/rales Cardiovascular: No edema, Regular rate/rhythm, Normal S1 S2 - Studies Laboratory Data (last 24 hrs) 07/31/24 07/31/24 07/31/24 15:59 15:59 15:59 WBC 21.50 H Hgb 13.1 L Hct 41.4 Plt Count 203 PT 12.1 INR 1.15 APTT 31.9 Sodium 138 Potassium 3.9 BUN 21 H Creatinine 0.64 L Glucose 136 H Total Bilirubin 0.4 AST 45 H ALT 79 H Alkaline Phosphatase 89 Microbiology Data (last 24 hrs): 07/31/24 16:03 Nasopharnyx Influenza Type A Antigen Screen - Final 07/31/24 16:03 Nasopharnyx Influenza Type B Antigen Screen - Final Assessment And Plan - Current Problems (Diagnosis) (1) Community acquired pneumonia Current Visit: Yes Status: Acute Plan: Patient is 28 years of age with a history of cerebral palsy debilitated admitted with pneumonia worse than the right labs chemistries all reviewed white count is elevated chest x-ray reviewed bilateral infiltrate pressure satisfactory patient is not on any O2 continue with present therapy until the white count is nor malized can discharge home home on levofloxacin and doxycycline Qualifiers: Laterality: unspecified laterality Qualified Code(s): J18.9 - Pneumonia, unspecified organism
[2024-08-01] MEDS ORDERED: ONABOTULINUMTOXINA 100 UNIT IV SCH (15:15)
[2024-08-01] MEDS: ENTERAL NUTRITION FORMULA FT SCH (15:15)
[2024-08-01] MEDS ORDERED: BACLOFEN 10 MG TAB FT SCH (21:00)
[2024-08-01] MEDS: BACLOFEN 10 MG TAB FT SCH (21:00)
[2024-08-01] MEDS: clonazePAM 0.5 MG TAB FT SCH (21:00)
[2024-08-01] MEDS: TRAZODONE 50 MG TABLET FT SCH (21:00)
[2024-08-01] MEDS: ZONISAMIDE 100 MG FT SCH (21:00)
[2024-08-02 05:14] VITALS: BMI 16.8
[2024-08-02 06:31] LABS: Hematocrit 33.3 % (39.6-49.0); Hemoglobin 10.6 g/dL (13.6-17.9); MCH 24.8 pg (27.0-35.0); MCHC 31.7 g/dL (32.0-36.0); MCV 78.4 fL (80-100); MPV 8.3 fL (7.6-11.3); Platelets 175 thou/uL (152-406); RBC Red Blood Cell Count 4.25 M/uL (4.33-5.43); Red Cell Distribution Width 19.6 % (12.1-15.2)
[2024-08-02] MEDS: PANTOPRAZOLE 40MG TABLET PO SCH (07:30)
[2024-08-02 08:10] LABS: Albumin/Globulin Ratio 0.4 (1.1-1.8); Anion Gap 1.8 mEq/L (5.0-15.0); Bilirubin Total 0.3 mg/dL (0.2-1.0); Globulin 4.5 g/dL (2.3-3.5); Magnesium 1.8 mg/dL (1.6-2.4); Phosphorus 2.6 mg/dL (2.5-4.9); Potassium 3.8 mEq/L (3.5-5.1); Protein, Total 6.5 g/dL (6.4-8.2)
[2024-08-02] MEDS: POLYETHYLENE GLYCOL FT SCH (09:00)
[2024-08-02] MEDS ORDERED: HOME MED 1 EA UNK (Esomeprazole Mag Trihydrate [Nexium] 40 MG Capsule.Dr) FT SCH (09:00)
--- NOTE | 2024-08-02 10:26 | P.DS ---
Admission Date: 07/31/24 Discharge Date: 08/02/24 Disposition: ROUTINE DISCHARGE Discharge Condition: GOOD Reason for Admission: Bilateral pneumonia Brief History of Present Illness: 28 yo M, PMH: Cerebral palsy, seizure disorder He is being admitted for community-acquired pneumonia. He presented with difficulty breathing and malaise. Symptoms been ongoing for the past 24 hours. Associated symptoms include coughing and fever. He was 94% on room air in the ER but his O2 sats will occasionally drop in the mid 80s. Hospital Course: Problem List: Bilateral Pneumonia Cerebral Palsy Hx of seizure disorder Physician discharge instructions: Patient presented with worsening shortness of breath, generalized weakness, cough, fever secondary to bilateral pneumonia. Chest xray on admission noted bilateral airspace opacities concerning for Pneumonia/Pneumonitis. Dr. Alicia, pulm was consulted. Patient was started on empiric IV antibiotics (merrem/vanc), in addition to nebs and had improvement of his symptoms. Respiratory status improved with time and he remained on room air. He remained afebrile and leukocytosis resolved (21k on admission, resolved, 5k on day of discharge) His congestion improved as well. Patient's mother was at bedside and reported he was doing a lot better compared to when he came to the ED and looked much closer to his baseline. Patient is to complete 10 more days of oral levaquin and doxycycline. Family reports they have an upcoming follow up appointment scheduled for tomorrow morning at [facility] for his routine botox injections. Medications: Levofloxacin and Doxycycline for 10 more days via G-tube. Follow up: PCP 3-5 days Pulmonology 2-4 weeks Please call to schedule / confirm appointments Physical Exam: GEN: Alert, oriented, nonverbal CV: Regular rate and rhythm, no edema Pulm: Nonlabored respirations on room air, mild bilateral rhonchi, transmitted upper airway sounds ABD: soft, nontender, nondistended Integumentary: No rashes Neuro: nonverbal, opens eyes Vital Signs/Physical Exam: Temp Pulse Resp BP Pulse Ox 97.8 F 70 16 119/79 95 08/02/24 08:00 08/02/24 08:00 08/02/24 08:00 08/02/24 08:00 08/02/24 08:00 Laboratory Data at Discharge: WBC 5.50 thou/uL (4.3-10.9) 08/02/24 05:58 Hgb 10.6 g/dL (13.6-17.9) L 08/02/24 05:58 Hct 33.3 % (39.6-49.0) L 08/02/24 05:58 Plt Count 175 thou/uL (152-406) 08/02/24 05:58 PT 12.1 SECONDS (9.4-12.5) 07/31/24 15:59 INR 1.15 07/31/24 15:59 APTT 31.9 SECONDS (24.3-36.9) 07/31/24 15:59 Sodium 141 mEq/L (136-145) 08/02/24 05:58 Potassium 3.8 mEq/L (3.5-5.1) 08/02/24 05:58 BUN 14 mg/dL (7-18) 08/02/24 05:58 Creatinine 0.48 mg/dL (0.70-1.30) L 08/02/24 05:58 Glucose 147 mg/dL (74-106) H 08/02/24 05:58 Phosphorus 2.6 mg/dL (2.5-4.9) 08/02/24 05:58 Magnesium 1.8 mg/dL (1.6-2.4) 08/02/24 05:58 Total Bilirubin 0.3 mg/dL (0.2-1.0) 08/02/24 05:58 AST 31 U/L (15-37) 08/02/24 05:58 ALT 54 U/L (16-61) 08/02/24 05:58 Alkaline Phosphatase 67 U/L (45-117) 08/02/24 05:58 Triglycerides 37 mg/dL (<150) 08/01/24 06:17 Cholesterol 74 mg/dL (<200) 08/01/24 06:17 HDL Cholesterol 56 mg/dL (40-60) 08/01/24 06:17 Cholesterol/HDL Ratio 1.32 08/01/24 06:17 Home Medications: Baclofen 10 mg FT TID 07/31/24 Diazepam [Valium] 5 mg FT Q8HR PRN 07/31/24 Esomeprazole Mag Trihydrate [Nexium] 40 mg FT DAILY 07/31/24 Nutren 1.0 Fiber 250 ml FT Q2H 07/31/24 Onabotulinumtoxina [Botox] 600 unit IJ SEECOM 07/31/24 Polyethylene Glycol 8000 [Polyethylene Glycol] 17 gm FT DAILY 07/31/24 Trazodone [Desyrel*] 50 mg FT BEDTIME 07/31/24 Zonisamide 100 mg FT BID 07/31/24 clonazePAM [Klonopin] 0.5 mg FT TID 07/31/24 Doxycycline Monohydrate 20 ml FT BID 10 Days #400 ml 08/02/24 levoFLOXacin [Levofloxacin] 30 ml FT DAILY 10 Days #300 ml 08/02/24 New Medications: Doxycycline Monohydrate 20 ml FT BID 10 Days #400 ml levoFLOXacin [Levofloxacin] 30 ml FT DAILY 10 Days #300 ml Physician Discharge Instructions: Physician discharge instructions: Patient presented with worsening shortness of breath, generalized weakness, cough, fever secondary to bilateral pneumonia. Chest xray on admission noted bilateral airspace opacities concerning for Pneumonia/Pneumonitis. Dr. Alicia, pulm was consulted. Patient was started on empiric IV antibiotics (merrem/vanc), in addition to nebs and had improvement of his symptoms. Respiratory status improved with time and he remained on room air. He remained afebrile and leukocytosis resolved (21k on admission, resolved, 5k on day of discharge) His congestion improved as well. Patient's mother was at bedside and reported he was doing a lot better compared to when he came to the ED and looked much closer to his baseline. Patient is to complete 10 more days of oral levaquin and doxycycline. Family reports they have an upcoming follow up appointment scheduled for tomorrow morning at [facility] for his routine botox injections. Medications: Levofloxacin and Doxycycline for 10 more days via G-tube. Follow up: PCP 3-5 days Pulmonology 2-4 weeks Please call to schedule / confirm appointments Followup: Nela Santacruz, [employer] PROGRAM COORDINATOR [Primary Care Provider] - Time spent managing pt's care (in minutes): 45
[2024-08-02 10:44] VITALS: O2SAT 95
[2024-08-02] MEDS: levoFLOXacin 750 MG TAB PO SCH (11:07)
[2024-08-02] MEDS ORDERED: D10W 250 ML BAG IV PRN (11:26)
[2024-08-02] MEDS ORDERED: D10W 125 ML IV PRN (11:33)
--- NOTE | 2024-08-02 12:06 | P.PN ---
Date of Service: 08/02/24 Subjective: ROS: 10 point ROS as noted above, otherwise negative Physical Exam: GEN: Alert, oriented, nonverbal CV: Regular rate and rhythm, no edema Pulm: Nonlabored respirations on room air, mild bilateral rhonchi, transmitted upper airway sounds ABD: soft, nontender, nondistended Integumentary: No rashes Neuro: nonverbal, opens eyes Problem List: Bilateral Pneumonia Hypoglycemia Cerebral Palsy Hx of seizure disorder on admission, presents with worsening shortness of breath, generalized weakness, cough, fever CXR (07/31): bilateral airspace opacities concerning for Pneumonia/Pneumonitis IV merrem/vanc (08/01-08/02) deescalated to oral doxycycline and levaquin (08/02-) Breathing okay on room air Duonebs dc IVF continue home meds as appropriate Patient clinically improved and was feeling better. Respiratory status improved. Patient was slated for discharge when routine BG down to 30-40s unclear etiology. Continue to monitor for now. Hold off on dc for now BG low-normal since admission. VTE: Lovenox Code: Full Dispo: Home Time Spent Managing Pts Care (In Minutes): 55
[2024-08-02 16:58] VITALS: BP 113/57; TEMP 97.6
[2024-08-02] MEDS: DOXYCYCLINE 100 MG CAP PO ONE (17:51)
[2024-08-02] MEDS ORDERED: DOXYCYCLINE 100 MG CAP PO SCH (21:00)
[2024-08-02] MEDS ORDERED: ZONISAMIDE 100 MG FT SCH (21:00)
[2024-08-03] MEDS ORDERED: ZONISAMIDE 100 MG FT SCH (09:00)
--- NOTE | 2024-08-03 12:22 | EKG ---
Test Date: 2024-07-31 Test Time: 16:12:03 [employer]: BP MEASUREMENT RESULTS: Intervals: Rate: 95 CT: 136 QRSD: 88 QT: 348 QTc: 437 [place]: P: 30 CT: 136 QRS: 87 T: 39 INTERPRETIVE STATEMENTS: Normal sinus rhythm Normal ECG Compared to ECG 06/21/2024 15:45:04 Sinus arrhythmia no longer present Electronically Signed On 08-03-24 12:17:29 [place] [employer] by Ata Colindres
== END 2024-08-02 18:53 | disposition home or self-care (01) | DRG 720 ==
LOC: ER 15:26 → ERHOLD 18:32 → 2ND 20:26
PROVIDERS: ADMIT Internal Medicine; ATTEND Hospitalist
DX: A41.9 Sepsis, unspecified organism (principal); J18.9 Pneumonia, unspecified organism; G80.9 Cerebral palsy, unspecified; E43 Unspecified severe protein-calorie malnutrition; Z68.1 Body mass index [BMI] 19.9 or less, adult; G40.909 Epilepsy, unspecified, not intractable, without status epilepticus; Z93.1 Gastrostomy status
CPT/HCPCS: 36415; 71045; 80048; 80053; 80061; 80202; 82947; 83605; 83735; 83880; 84100; 84145; 85025; 85027; 85610; 85730; 87040; 87804; 87811; 93005; 94760; 96365; 96366; 99285; J0696; J1650; J2185; J7030; J7050; J7613; J7644